=== PATIENT | male | born 1980 | race Caucasian/White ===

== ENCOUNTER 2018-06-22 09:17 | Outpatient (CLI) | payer OTHER ==
--- NOTE | 2018-06-22 10:56 | RAD ---
1 VIEW PELVIS: Date: 06/22/18 HISTORY: Ankylosing spondylitis. FINDINGS: SI joints are symmetric and patent. Sacral ala are unremarkable. Symmetric hip joints. Intact bony pelvis. IMPRESSION: Unremarkable 1 view pelvis. POS: [facility]
== END 2018-06-22 09:18 | disposition home or self-care (01) ==
LOC: SCSRAD 09:17
PROVIDERS: ATTEND Family Medicine
DX: Z82.69 Family history of other diseases of the musculoskeletal system and connective tissue (principal)
CPT/HCPCS: 36415; 72170; 80053; 80061; 81374; 83036; 83520; 84439; 84443; 85025; 85652; 86038; 86140; 86200; 86225